=== PATIENT | female | born 1995 | race Asian ===

== ENCOUNTER 2018-03-30 16:06 | Emergency (ER) | payer OTHER ==
--- NOTE | 2018-03-30 15:56 | EDPHY ---
H & P Time Seen by Provider: 03/30/18 16:07 Constitutional: Initial Vital Signs Temperature (C) 36.8 C 03/30/18 16:06 Heart Rate 81 03/30/18 16:06 Respiratory Rate 12 03/30/18 16:06 Blood Pressure 140/72 H 03/30/18 16:06 O2 Sat (%) 100 03/30/18 16:06 O2 Delivery Mode Room Air Allergies/Adverse Reactions: No Known Allergies Allergy (Verified 03/30/18 16:44) Home Medications: Medication Instructions Recorded NK [No Known Home Meds] 03/30/18 Medical Decision Making - Diagnostics Imaging Results: Imaging Impressions Chest X-Ray 03/30/18 16:13 Impression: No acute cardiopulmonary process. Imaging: I viewed and interpreted images myself ED Course/Re-evaluation: CHIEF COMPLAINT: Dizziness, tachypnea, shortness of breath HISTORY OF PRESENT ILLNESS: This patient is a 22 year old female arriving via EMS for evaluation of dizziness, tachypnea, and shortness of breath. She works at the [employer] and her coworkers originally brought her to [facility] for evaluation of dizziness, lightheadedness and weakness. Per EMS report, EKG there showed possible SVT and the patient was referred to the ED for further evaluation. EMS crews did not observe any heart rate greater than 130. Her heart rate decreased to 95 during transport. The patient was tachypneic around 40/minute and endorsed associated paresthesias in her hands. She endorses increased stress at work and works two jobs. She denies any recent illness or history of anxiety. No recent prolonged travel. No chest pain, abdominal pain, nausea, vomiting, diarrhea, urinary complaints, or other associated symptoms. HPI obtained primarily through EMS report; the patient is resting with her eyes closed throughout the majority of my interview though she does respond appropriately to direct questions. REVIEW OF SYSTEMS: A comprehensive 10 system review of systems is otherwise negative aside from elements mentioned in the history of present illness and medical decision making. PHYSICAL EXAM: HR, BP, O2 Sat, RR. Temp noted General Appearance: Alert and responsive but resting with eyes closed. Well hydrated, appropriate, and non-toxic appearing. Head: Atraumatic without scalp tenderness or obvious injury Eyes: Pupils equal, round, reactive to light and accommodation, EOMI, no trauma , no injection. Ears: Clear bilaterally, no perforation, normal landmarks Nose: Atraumatic, no rhinorrhea, clear. Throat: There is no erythema or exudates, no lesions, normal tonsils, mucus membranes moist. Neck: Supple, 2+ carotid upstroke, nontender, no lymphadenopathy. Respiratory: No retractions, no distress, no wheezes, and no accessory muscle use. Lungs are clear to auscultation bilaterally. Cardiovascular: Regular rate and rhythm, no murmurs, rubs, or gallops. Bilateral carotid, radial, dorsalis pedis, and posterior tibial pulses intact. Good capillary refill all extremities. Gastrointestinal: Abdomen is soft, nontender, non-distended, no masses, no rebound, no guarding, no peritoneal signs. Musculoskeletal: Normal active ROM of all extremities, atraumatic. Neurological: Alert, appropriate, and interactive. The patient has normal DTRs and non-focal cranial nerves, motor, sensory, and cerebellar exam. Skin: No rashes, good turgor, no nodules on palpation. Past medical history: Denies Past surgical history: Noncontributory Family history: Noncontributory. Social history: Employed. Does not abuse tobacco, drugs, or alcohol. DIAGNOSTICS/PROCEDURES/CRITICAL CARE TIME: 16:14 The 12 lead EKG was interpreted by myself. See hard copy and/or "tracemaster" electronic copy for interpretation. Sinus rhythm with PACs. DIFFERENTIAL DIAGNOSIS: The differential diagnosis for the patient's dizziness included but was not limited to peripheral and central causes of vertigo, orthostatic causes including dehydration, cardiogenic and neurogenic causes, and blood loss. MEDICAL DECISION MAKIN:07 Met EMS at bedside. 22 year old female presents with dizziness, lightheadedness and weakness. She endorsed tachypnea with associated extremity paresthesias, consistent with hyperventilation. My exam is largely unremarkable. She is not tachycardic or tachypneic and is resting with her eyes closed. Plan for EKG, chest x-ray, labs including CBC, chemistries, troponin, BHCG, d-dimer, Mg to rule out acute causes including cardiac, electrolyte imbalance, or other processes. IV established. Plan to administer 0.5L IV NS. EKG shows sinus rhythm with PACs. Chest x-ray is unremarkable. 16:36 POC Troponin 0.00 CO2 low at 21, consistent with hyperventilation. Labs are otherwise unremarkable. BGL is normal. BHCG negative. D-dimer is negative. Reassessed. Discussed imaging and laboratory results. The patient is reassured that her symptoms today seem benign. Plan to discharge home in good condition. Follow up and return precautions discussed. The patient is comfortable with this plan. - Data Points Laboratory Results: Laboratory Results 03/30/18 16:06 03/30/18 16:06 03/30/18 03/30/18 03/30/18 16:26 16:06 16:06 WBC RBC Hgb Hct MCV MCH MCHC RDW Plt Count MPV Neut % (Auto) Lymph % (Auto) Bates % (Auto) Eos % (Auto) Baso % (Auto) Nucleat RBC Rel Count Absolute Neuts (auto) Absolute Lymphs (auto) Absolute Monos (auto) Absolute Eos (auto) Absolute Basos (auto) Absolute Nucleated RBC Immature Gran % Immature Gran # D-Dimer 0.31 ug/mLFEU ug/mLFEU (0.00-0.50) Sodium Potassium Chloride Carbon Dioxide Anion Gap BUN Creatinine Estimated GFR Glucose Calcium Magnesium POC Troponin I 0.00 ng/mL ng/mL (0.00-0.08) Beta HCG, Qual NEGATIVE 03/30/18 03/30/18 16:06 16:06 WBC 9.33 10^3/uL 10^3/uL (3.80-9.50) RBC 4.12 10^6/uL L 10^6/uL (4.18-5.33) Hgb 12.6 g/dL g/dL (12.6-16.3) Hct 36.5 % L % (38.0-47.0) MCV 88.6 fL fL (81.5-99.8) MCH 30.6 pg pg (27.9-34.1) MCHC 34.5 g/dL g/dL (32.4-36.7) RDW 12.4 % % (11.5-15.2) Plt Count 370 10^3/uL 10^3/uL (150-400) MPV 10.3 fL fL (8.7-11.7) Neut % (Auto) 59.6 % % (39.3-74.2) Lymph % (Auto) 31.9 % % (15.0-45.0) Bates % (Auto) 6.8 % % (4.5-13.0) Eos % (Auto) 1.1 % % (0.6-7.6) Baso % (Auto) 0.5 % % (0.3-1.7) Nucleat RBC Rel Count 0.0 % % (0.0-0.2) Absolute Neuts (auto) 5.56 10^3/uL 10^3/uL (1.70-6.50) Absolute Lymphs (auto) 2.98 10^3/uL 10^3/uL (1.00-3.00) Absolute Monos (auto) 0.63 10^3/uL 10^3/uL (0.30-0.80) Absolute Eos (auto) 0.10 10^3/uL 10^3/uL (0.03-0.40) Absolute Basos (auto) 0.05 10^3/uL 10^3/uL (0.02-0.10) Absolute Nucleated RBC 0.00 10^3/uL 10^3/uL (0-0.01) Immature Gran % 0.1 % % (0.0-1.1) Immature Gran # 0.01 10^3/uL 10^3/uL (0.00-0.10) D-Dimer Sodium 136 mEq/L mEq/L (135-145) Potassium 3.3 mEq/L mEq/L (3.3-5.0) Chloride 100 mEq/L mEq/L (97-110) Carbon Dioxide 21 mEq/l L mEq/l (22-31) Anion Gap 15 mEq/L H mEq/L (6-14) BUN 12 mg/dL mg/dL (7-23) Creatinine 0.8 mg/dL mg/dL (0.6-1.0) Estimated GFR > 60 Glucose 144 mg/dL H mg/dL (70-100) Calcium 9.8 mg/dL mg/dL (8.5-10.4) Magnesium 1.7 mg/dL mg/dL (1.6-2.3) POC Troponin I Beta HCG, Qual Medications Given: Discontinued Medications Sodium Chloride (Ns) 500 mls @ 1,000 mls/hr IV EDNOW ONE PRN Reason: Protocol Stop: 03/30/18 16:41 Last Admin: 03/30/18 16:49 Dose: 500 mls Point of Care Test Results: Chemistry 03/30/18 16:26 POC Troponin I 0.00 ng/mL ng/mL (0.00-0.08) Departure - Departure Disposition: Home, Routine, Self-Care Clinical Impression: Panic attack, Hyperventilation Fatigue Qualifiers: Fatigue type: unspecified Qualified Code(s): R53.83 - Other fatigue Condition: Good Instructions: Hyperventilation (ED), Stress (ED), Fatigue (ED) Additional Instructions: Follow-up with your primary doctor in 2-3 days. Stay well hydrated and try to get adequate rest. Return to the Emergency Department for fever, chest pain, shortness of breath, increasing pain or other worsening of condition. Referrals: Trent Hall MD [Medical Doctor] - As per Instructions Report Scribed for: Gordo Chaparro Report Scribed by: Barb Markham Date of Report: 03/30/18 Time of Report: 16:08
[2018-03-30] MEDS ORDERED: NS 500 ML IV ONE (16:12)
[2018-03-30 16:28] LABS: PLATELET COUNT 370 10^3/uL (150-400)
--- NOTE | 2018-03-30 16:56 | CPEKG ---
Test Reason : OPEN Blood Pressure : / mmHG Vent. Rate : 090 BPM Atrial Rate : 093 BPM P-R Int : 136 ms QRS Dur : 083 ms QT Int : 369 ms P-R-T Axes : 052 049 011 degrees QTc Int : 452 ms Sinus arrhythmia Confirmed by Gordo Chaparro [id number] on 03/30/2018 4:55:35 PM Referred By: Confirmed By:Gordo Chaparro
[2018-03-30 17:21] VITALS: BP 120/79
== END 2018-03-30 17:20 | disposition home or self-care (01) ==
DX: F41.0 Panic disorder [episodic paroxysmal anxiety] (principal); R06.4 Hyperventilation
CPT/HCPCS: 84484-PO

== ENCOUNTER → 2018-10-04 | Outpatient (CLI) | payer OTHER | LOC: BMCIMAGING 13:34 | PROVIDERS: ATTEND Family Medicine | DX: M79.641 Pain in right hand (principal); R60.9 Edema, unspecified ==